=== PATIENT | female | born 1985 | race Caucasian/White ===

== ENCOUNTER 2018-08-24 06:45 | Inpatient (IN) | payer BC ==
[2018-08-24] VITALS (8 sets, daily range): BP systolic 121–137; BP diastolic 95–108; Ht 162.6 cm; Wt 75.3 kg
[~2018-08-24] VITALS: Ht 162.6 cm; Wt 75.3 kg
[~2018-08-24 06:45] MED LIST changes: -ASPI-757 PO; -CEPH500T7 PO; -HYDR-385 PO; -OXCA600T39 PO; -OXYC-373 PO; -PROP20TA56 PO; -QUET25TA PO; -VITA-175 PO; -oxycodone PO
[2018-08-24] MEDS ORDERED: ceFAZolin 1 GM VIAL IVP ONE ×3 (06:50→15:50)
[2018-08-24] MEDS ORDERED: DIPHTH/TETANUS/ACEL. PERTUSSIS IM ONLY ONE (06:50)
[2018-08-24] MEDS ORDERED: NS(*) 0.9% 100 ML ADDVANT BAG 100 ML ONE (07:05)
--- NOTE | 2018-08-24 07:10 | ER Report ---
History and Physical Time Seen By MD: 07:09 Hx. of Stated Complaint: PATIENT FELL DOWNSTAIRS AT HOME AROUND MIDNIGHT, PATIENT HAS OPEN FRACTURE TO LEFT LOWER LEG. PATIENT TOOK A HYDROCODONE. HPI/ROS CHIEF COMPLAINT: Fall, left lower extremity open tib-fib fracture HISTORY OF PRESENT ILLNESS: Patient is a 32-year-old female here with complaints of a fall with obvious bone deformity to the left lower extremity tib-fib. Patient reports that she was walking and fell at approximately midnight. Patient admits to drinking alcohol. She denies other pain at this time, EFAST was negative. Patient reports that she laid on the floor from midnight until approximately 6:00 in the morning. Denies headache, blurred vision. Sensation and neurovascular exam is intact distal to the injury site. Capillary refills less than 2 seconds. Patient denies anticoagulation therapy. REVIEW OF SYSTEMS: Constitutional: No fever, no chills. Eyes: No discharge. ENT: No sore throat. Cardiovascular: No chest pain, no palpitations. Respiratory: No cough, no shortness of breath. Gastrointestinal: No abdominal pain, no vomiting. Genitourinary: No hematuria. Musculoskeletal: No back pain, + LLE deformity mid shaft tib/fib, open fx Skin: No rashes. Neurological: No headache, NV exam intact distal to injury site Allergies: Coded Allergies: valacyclovir (Verified Allergy, Unknown, HIVES, 07/31/15) Home Meds Reported Medications Hydrocodone Bit/Acetaminophen (HYDROCODON-ACETAMINOPHEN 5-325) 1 Each Tablet, 1 EACH PO Q6H PRN for PAIN, TAB 08/24/18 Quetiapine Fumarate (QUETIAPINE FUMARATE) 25 Mg Tablet, 1 TAB PO BID 08/24/18 Propranolol Hcl (PROPRANOLOL HCL) 20 Mg Tablet, 1 TAB PO DAILY 08/24/18 Oxcarbazepine (OXCARBAZEPINE) 600 Mg Tablet, 1 TAB PO BID 08/24/18 Clonazepam (CLONAZEPAM) 0.5 Mg Tablet, 0.5 MG PO, #6 TAB as needed for panic attacks. use sparingly 10/26/14 Discontinued Reported Medications Fluoxetine Hcl (PROZAC) 10 Mg Capsule, 80 MG PO QDAY, CAPSULE 10/26/14 Hx Smoking: No Smoking Status: Former Smoker Exposure to Second Hand Smoke?: No Hx Alcohol Use: Yes (1-2 PINTS/DAY) Constitutional Vital Sign - Last 24 Hours 08/24/18 08/24/18 08/24/18 08/24/18 06:47 06:55 07:00 07:05 Pulse 94 95 99 97 Resp 16 22 19 B/P (MAP) 153/110 145/105 (118) 154/112 (126) Pulse Ox 88 95 94 94 O2 Delivery Room Air 08/24/18 08/24/18 08/24/18 08/24/18 07:10 07:15 07:20 07:25 Pulse 90 92 94 91 Resp 15 15 26 38 Pulse Ox 94 93 94 96 08/24/18 08/24/18 08/24/18 08/24/18 07:30 07:35 07:40 07:45 Pulse 89 99 84 90 Resp 14 15 13 11 B/P (MAP) 135/102 (113) Pulse Ox 96 96 92 91 08/24/18 08/24/18 08/24/18 08/24/18 07:55 08:00 08:05 08:10 Pulse 87 92 81 Resp 10 20 12 16 Pulse Ox 95 94 08/24/18 08/24/18 08/24/18 08/24/18 08:15 08:45 08:55 09:00 Pulse 106 86 88 Resp 18 B/P (MAP) 135/95 (108) 139/110 (120) Pulse Ox 94 94 08/24/18 08/24/18 08/24/18 08/24/18 09:05 09:10 09:15 09:20 Pulse 85 84 82 120 Pulse Ox 93 93 95 96 08/24/18 08/24/18 08/24/18 08/24/18 09:25 09:30 09:35 09:40 Pulse 90 93 93 101 B/P (MAP) 148/108 (121) Pulse Ox 94 95 95 94 08/24/18 08/24/18 08/24/18 08/24/18 09:45 09:50 10:00 10:20 Pulse 94 94 84 B/P (MAP) 129/109 (116) Pulse Ox 94 94 95 08/24/18 08/24/18 08/24/18 10:25 10:30 10:35 Pulse 89 83 91 B/P (MAP) 123/89 (100) Pulse Ox 91 93 91 Intake and Output 08/24/18 08/24/18 08/25/18 15:00 23:00 07:00 Intake Total 2100 ml Output Total 1250 ml Balance 850 ml Physical Exam General Appearance: The patient is alert, has no immediate need for airway protection and no signs of toxicity. No acute distress Eyes: Pupils equal and round no pallor or injection. ENT, Mouth: Mucous membranes are moist. Respiratory: There are no retractions, lungs are clear to auscultation. Cardiovascular: Regular rate and rhythm. Gastrointestinal: Abdomen is soft and non tender, no masses, bowel sounds normal. Neurological: Neurovascular exam intact distal to the injury site Skin: Warm and dry, no rashes. Musculoskeletal: Neck is supple non tender. + mid shaft tib/fib deformity of LLE, open fx DIFFERENTIAL DIAGNOSIS: After history and physical exam differential diagnosis was considered for open fracture, closed fracture, fracture with angulation, neurovascular compromise Medical Decision Making Data Points Result Diagram: 08/25/18 0530 08/25/18 0530 Laboratory Hematology Test 08/24/18 06:19 08/24/18 07:41 Prothrombin Time 12.6 seconds (12.0-14.4) Prothromb Time International Ratio 0.94 Activated Partial Thromboplast Time 28 seconds (23-35) Total Creatine Kinase 473 U/L (30-135) Human Chorionic Gonadotropin, Qual Negative (NEGATIVE) Urine Color Yellow Urine Clarity Clear Urine pH 6.0 pH (4.8-9.5) Urine Specific [place] 1.006 Urine Protein Negative mg/dL (NEGATIVE) Urine Glucose (UA) Negative mg/dL (NEGATIVE) Urine Ketones 20 mg/dL (NEGATIVE) Urine Blood Negative (NEGATIVE) Urine Nitrite Negative (NEGATIVE) Urine Bilirubin Negative (NEGATIVE) Urine Urobilinogen Negative mg/dL (0.2-1.9) Urine Leukocyte Esterase Negative (NEGATIVE) Urine RBC <1 /HPF (0-2/HPF) Urine WBC <1 /HPF (0-5/HPF) Urine Squamous Epithelial Cells None /LPF (NONE-FEW) Urine Transitional Epithelial Cells Few /LPF (NONE-FEW) Urine Bacteria Negative /HPF (NONE-FEW) Urine Mucus Few /HPF (NONE-FEW) Urine Opiates Screen Positive Urine Barbiturates Screen Negative Ur Tricyclic Antidepressants Screen Negative Urine Phencyclidine Screen Negative Urine Amphetamines Screen Negative Urine Benzodiazepines Screen Negative Urine Cocaine Screen Negative Urine Cannabinoids Screen Positive Chemistry Test 08/24/18 06:19 11/9/18 07:41 Prothrombin Time 12.6 seconds (12.0-14.4) Prothromb Time International Ratio 0.94 Activated Partial Thromboplast Time 28 seconds (23-35) Total Creatine Kinase 473 U/L (30-135) Human Chorionic Gonadotropin, Qual Negative (NEGATIVE) Urine Color Yellow Urine Clarity Clear Urine pH 6.0 pH (4.8-9.5) Urine Specific [place] 1.006 Urine Protein Negative mg/dL (NEGATIVE) Urine Glucose (UA) Negative mg/dL (NEGATIVE) Urine Ketones 20 mg/dL (NEGATIVE) Urine Blood Negative (NEGATIVE) Urine Nitrite Negative (NEGATIVE) Urine Bilirubin Negative (NEGATIVE) Urine Urobilinogen Negative mg/dL (0.2-1.9) Urine Leukocyte Esterase Negative (NEGATIVE) Urine RBC <1 /HPF (0-2/HPF) Urine WBC <1 /HPF (0-5/HPF) Urine Squamous Epithelial Cells None /LPF (NONE-FEW) Urine Transitional Epithelial Cells Few /LPF (NONE-FEW) Urine Bacteria Negative /HPF (NONE-FEW) Urine Mucus Few /HPF (NONE-FEW) Urine Opiates Screen Positive Urine Barbiturates Screen Negative Ur Tricyclic Antidepressants Screen Negative Urine Phencyclidine Screen Negative Urine Amphetamines Screen Negative Urine Benzodiazepines Screen Negative Urine Cocaine Screen Negative Urine Cannabinoids Screen Positive Coagulation Test 08/24/18 06:19 Prothrombin Time 12.6 seconds Prothromb Time International Ratio 0.94 Activated Partial Thromboplast Time 28 seconds Toxicology Test 08/24/18 07:41 Urine Opiates Screen Positive Urine Barbiturates Screen Negative Ur Tricyclic Antidepressants Screen Negative Urine Phencyclidine Screen Negative Urine Amphetamines Screen Negative Urine Benzodiazepines Screen Negative Urine Cocaine Screen Negative Urine Cannabinoids Screen Positive Urinalysis Test 08/24/18 07:41 Urine Color Yellow Urine Clarity Clear Urine pH 6.0 pH (4.8-9.5) Urine Specific [place] 1.006 Urine Protein Negative mg/dL (NEGATIVE) Urine Glucose (UA) Negative mg/dL (NEGATIVE) Urine Ketones 20 mg/dL (NEGATIVE) Urine Blood Negative (NEGATIVE) Urine Nitrite Negative (NEGATIVE) Urine Bilirubin Negative (NEGATIVE) Urine Urobilinogen Negative mg/dL (0.2-1.9) Urine Leukocyte Esterase Negative (NEGATIVE) Urine RBC <1 /HPF (0-2/HPF) Urine WBC <1 /HPF (0-5/HPF) Urine Squamous Epithelial Cells None /LPF (NONE-FEW) Urine Transitional Epithelial Cells Few /LPF (NONE-FEW) Urine Bacteria Negative /HPF (NONE-FEW) Urine Mucus Few /HPF (NONE-FEW) EKG/Imaging EKG Interpretation Test Reason : Pre-op Blood Pressure : / mmHG Vent. Rate : 082 BPM Atrial Rate : 082 BPM P-R Int : 124 ms QRS Dur : 076 ms QT Int : 424 ms P-R-T Axes : 025 064 051 degrees QTc Int : 495 ms Sinus rhythm Slightly prolonged QT interval Abnormal ECG When compared with ECG of 31-JUL-2015 02:39, No significant change was found Confirmed by ROZINA LOPEZ ([id number]) on 08/24/2018 1:27:16 PM Monitor Interpretation: Normal Sinus Rhythm Imaging Location: [facility] [place] Patient: Sybil Dewitt : 1985 Visit/Account:[id number] Date of Sev: 08/24/2018 TIBIA FIBULA LEFT Indication: Fall. Open fracture deformity. Comparison: None available Findings: Frontal and lateral views of the left tibia-fibula are obtained. Beginning with the tibia, there is an oblique fracture through the shaft of the tibia at the j unction of the middle and distal thirds. There is medial and posterior angulation of the distal fracture fragment as well as posterior displacement. There is overriding of the fracture fragments as well. Multiple flecks of gas are seen in the soft tissues in keeping with an open fracture. There is a segmental fracture of the fibula. Fractures are seen involving the proximal shaft as well as the mid to distal shaft. The most distal fragment is angulated medially and posteriorly with medial displacement. IMPRESSION: 1. Open left tibia-fibula fracture as detailed above. Multiple flecks of gas seen within the soft tissues about the tibia fracture line. Location: [facility] [place] Patient: Sybil Dewitt : 1985 Visit/Account:[id number] Date of Sevice: 08/24/[address] scan without contrast COMPARISONS: None ADDITIONAL PERTINENT HISTORY: Fall TECHNIQUE: Multiple axial images were obtained from the skull base to the vertex without IV contrast. One of the following dose optimization techniques was utilized in the performance of this exam: Automated exposure control; adjustment of the mA and/or kV according to the patient's size; or use of an iterative reconstruction technique. Specific details can be referenced in the facility's radiology CT exam operational policy. FINDINGS: Midline shift: Negative Ventricles: Negative Brain parenchyma: Negative Extra-axial spaces: Negative Intracranial vasculature: Negative Osseous structures: Negative Paranasal sinuses and mastoid air cells: Small mucous retention cyst involving the right sphenoid sinus. Surrounding soft tissues and orbits: Negative IMPRESSION: 1. No evidence of acute intracranial pathology. 2. Small mucous retention cyst involving the right maxillary sinus. C-SPINE W/O CONTRAST COMPARISONS: None. ADDITIONAL PERTINENT HISTORY: Fall TECHNIQUE: Multiple axial images were obtained from the skull base through the upper thoracic spine with coronal and sagittal reformatted images obtained without IV contrast. One of the following dose optimization techniques was utilized in the performance of this exam: Automated exposure control; adjustment of the mA and/or kV according to the patient's size; or use of an iterative reconstruction technique. Specific details can be referenced in the facility's radiology CT exam operational policy. FINDINGS. Vertebral body heights and alignment: Mild reversal of normal cervical lordosis centered at C6-C7. Vertebral bodies: Negative. Disc spaces: None. Cranial cervical junction: Negative. Cervical thoracic junction: Negative. Surrounding soft tissues: Negative. Lung apices: Negative. IMPRESSION: 1. Mild reversal of normal cervical lordosis. 2. No acute appearing bony abnormalities. Location: [facility] [place] Patient: Sybil Dewitt : 1985 Visit/Account:[id number] Date of : 08/24/2018 PELVIS INDICATION: Fall downstairs. COMPARISON: None available FINDINGS: Single frontal view of the pelvis is submitted. No acute fracture is identified. Hip joints appear appropriately aligned on this single projection. Pubic symphysis and sacroiliac joints are appropriately aligned. IMPRESSION: 1. No acute osseous abnormality of the pelvis Location: [facility] [place] Patient: Sybil Dewitt : 1985 Visit/Account:[id number] Date of : 08/24/2018 Left femur Indication: Pain. Fall downstairs. Comparison: None available Findings: Frontal and lateral views of the left femur are submitted on a total of 4 images. No acute fracture deformity is identified. The alignment at the hip and the knee appears intact. No osseous or joint centered abnormality.. IMPRESSION: 1. No acute osseous abnormality left femur CTA LOWER EXTREMITY HISTORY: fracture, r/o vascular injury One of the following dose optimization techniques was utilized in the performance of this exam: Automated exposure control; adjustment of the mA and/or kV according to the patient's size; or use of an iterative reconstruction technique. Specific details can be referenced in the facility's radiology CT exam operational policy. CTA of the left lower extremity. TECHNIQUE: CTA of the left lower extremity with 125 mL of Isovue-370 administered. Axial imaging from the pelvis through foot. Reconstructed sagittal and coronal scans were obtained as well. FINDINGS: The study demonstrates a widely patent common iliac, external iliac, common femoral, SFA, popliteal anterior tibial, tibioperoneal trunk and posterior tibial and peroneal arteries throughout the left lower leg with no evidence of vascular injury. There are overlapping fractures of the fibula in its proximal metadiaphysis as well as a distal third aspect. There is offset and overlapping of the distal third tibial fracture. There is a distal third tibial fracture with offset posterior offset of the dis more component with a 12 degree lateral angulation. There is a continuation of a fracture line in the distal tibia along its medial aspect both anteriorly and posteriorly initially (images 147 through 159) and then continuing as a posterior cortical fracture line down to the tibial plafond. At this point there is a displaced fracture of the distal medial tibia as a 1.8 cm chip avulsion (image 187 series 9.) On the axial image the fracture extends across the tibial plafond medially well visualized on axial image 186 series 9. The adjacent talus calcaneus and mid foot structures are unremarkable. There is soft tissue air seen adjacent to the tibial fracture anteriorly with an additional small amount of air interposed between the fracture fragments. No foreign material is seen. IMPRESSION: 1. Multiple fractures involving the fibula in its proximal and distal third aspects, distal third tibia fracture with an additional fracture line extending down the length of the tibia terminating as a Y-shaped fracture extending across the tibial plafond and into the joint space with a chip avulsion of the distal lateral tibia. 2. Soft tissue air within the soft tissues consistent with an open fracture. 3. No evidence of acute arterial injury. ED Course/Re-evaluation ED Course Patient is a 32-year-old female here status post fall down a flight of steps approximately midnight. Patient reportedly was unable to get up and walk due to open deformity of the left tib-fib. Patient reportedly was on the floor for quite some time and was found to have an alcohol level of 269 at time of arrival. Tox screen was positive for cannabis and opiates. Patient was given IV fluids, thiamine, folic acid, Ativan. Due to the severity of the injury, Dr. Bacon with orthopedics was contacted and agreed to take the patient to his service and for surgical intervention. CT head and C-spine showed no acute findings, physical exam was otherwise unremarkable. Patient was neurovascularly intact distal to the injury site. Patient was stable at time of admission Decision to Disposition Date: Aug 24, 2018 Decision to Disposition Time: 10:30 Depart Departure Latest Vital Signs Vital Signs Date Time Temp Pulse Resp B/P (MAP) Pulse Ox O2 Delivery O2 Flow Rate FiO2 08/24/18 10:35 91 91 08/24/18 10:30 123/89 (100) 08/24/18 08:15 18 08/24/18 06:47 Room Air Impression: Primary Impression: Tibia/fibula fracture Additional Impression: Alcohol abuse Condition: Condition Unchanged Disposition: Admitted from ER Problem Qualifiers LAZARO PEREZ DO Aug 24, 2018 07:10
[2018-08-24] MEDS ORDERED: fentaNYL CITR 100 MCG/2 ML AMP IVP ONE (07:30)
[2018-08-24] MEDS ORDERED: NS(*) 0.9% 1000 ML BAG 1,000 ML IV ONE ×3 (07:35→07:55)
[2018-08-24 07:36] LABS: PLATELET COUNT, AUTOMATED 183 K/uL (150-450)
--- NOTE | 2018-08-24 07:36 | RADIOLOGY IMAGING REPORT ---
FACILITY: [facility] [place] PATIENT NAME: Sybil Dewitt : 1985 MR: [id number] V: [id number] EXAM DATE: ORDERING PHYSICIAN: BELLA DUBON TECHNOLOGIST: Location: [facility] [place] Patient: Sybil Dewitt : 1985 Visit/Account:[id number] Date of Sevice: 08/24/2018 PELVIS INDICATION: Fall downstairs. COMPARISON: None available FINDINGS: Single frontal view of the pelvis is submitted. No acute fracture is identified. Hip joints appear ap propriately aligned on this single projection. Pubic symphysis and sacroiliac joints are appropriatel y aligned. IMPRESSION: 1. No acute osseous abnormality of the pelvis Report Dictated By: Samy Cheek at 08/24/2018 7:31 AM Report E-Signed By: Samy Cheek at 08/24/2018 7:32 AM WSN:[id number]
--- NOTE | 2018-08-24 07:37 | RADIOLOGY IMAGING REPORT ---
FACILITY: [facility] - [place] PATIENT NAME: Sybil Dewitt : 1985 MR: [id number] V: [id number] EXAM DATE: ORDERING PHYSICIAN: BELLA DUBON TECHNOLOGIST: Location: [facility] [place] Patient: Sybil Dewitt : 1985 Visit/Account:[id number] Date of Sevice: 08/24/2018 Left femur Indication: Pain. Fall downstairs. Comparison: None available Findings: Frontal and lateral views of the left femur are submitted on a total of 4 images. No acute fracture d eformity is identified. The alignment at the hip and the knee appears intact. No osseous or joint nathan tered abnormality.. IMPRESSION: 1. No acute osseous abnormality left femur Report Dictated By: Samy Cheek at 08/24/2018 7:32 AM Report E-Signed By: Samy Cheek at 08/24/2018 7:34 AM WSN:[id number]
--- NOTE | 2018-08-24 07:44 | RADIOLOGY IMAGING REPORT ---
FACILITY: [facility] PATIENT NAME: Sybil Dewitt : 1985 MR: [id number] V: [id number] EXAM DATE: ORDERING PHYSICIAN: RIVAS MIR TECHNOLOGIST: Location: [facility] Patient: Sybil Dweitt : 1985 Visit/Account:[id number] Date of Sevice: 08/24/2018 TIBIA FIBULA LEFT Indication: Fall. Open fracture deformity. Comparison: None available Findings: Frontal and lateral views of the left tibia-fibula are obtained. Beginning with the tibia, there is a n oblique fracture through the shaft of the tibia at the junction of the middle and distal thirds. Th ere is medial and posterior angulation of the distal fracture fragment as well as posterior displacem ent. There is overriding of the fracture fragments as well. Multiple flecks of gas are seen in the so ft tissues in keeping with an open fracture. There is a segmental fracture of the fibula. Fractures a re seen involving the proximal shaft as well as the mid to distal shaft. The most distal fragment is angulated medially and posteriorly with medial displacement. IMPRESSION: 1. Open left tibia-fibula fracture as detailed above. Multiple flecks of gas seen within the soft tis sues about the tibia fracture line. Report Dictated By: Samy Cheek at 08/24/2018 7:34 AM Report E-Signed By: Samy Cheek at 08/24/2018 7:41 AM WSN:[id number]
[2018-08-24] MEDS ORDERED: THIAMINE HCL 100 MG TAB PO ONE (07:55)
[2018-08-24] MEDS ORDERED: FOLIC ACID 1 MG TAB PO ONE (07:55)
[2018-08-24] MEDS ORDERED: IOPAMIDOL 76% 75 ML INFUS BTL 75 ML ONE (08:07)
[2018-08-24] MEDS ORDERED: IOPAMIDOL 76% 50 ML INFUS BTL 50 ML ONE (08:07)
[2018-08-24] MEDS ORDERED: NS(*) 0.9% 50 ML BAG 50 ML ONE (08:07)
[2018-08-24 08:09] LABS: INR 0.94
[2018-08-24] MEDS ORDERED: EMS NS 0.9%(*) 1000 ML BAG 1,000 ML IV ONE (08:20)
--- NOTE | 2018-08-24 09:15 | RADIOLOGY IMAGING REPORT ---
FACILITY: [facility] PATIENT NAME: Sybil Dewitt : 1985 MR: [id number] V: [id number] EXAM DATE: ORDERING PHYSICIAN: RIVAS MIR TECHNOLOGIST: Location: [facility] Patient: Sybil Dewitt : 1985 Visit/Account:[id number] Date of Sevice: 08/24/[address] scan without contrast COMPARISONS: None ADDITIONAL PERTINENT HISTORY: Fall TECHNIQUE: Multiple axial images were obtained from the skull base to the vertex without IV contrast . One of the following dose optimization techniques was utilized in the performance of this exam: Aut omated exposure control; adjustment of the mA and/or kV according to the patient's size; or use of an iterative reconstruction technique. Specific details can be referenced in the facility's radiology CT exam operational policy. FINDINGS: Midline shift: Negative Ventricles: Negative Brain parenchyma: Negative Extra-axial spaces: Negative Intracranial vasculature: Negative Osseous structures: Negative Paranasal sinuses and mastoid air cells: Small mucous retention cyst involving the right sphenoid si nus. Surrounding soft tissues and orbits: Negative IMPRESSION: 1. No evidence of acute intracranial pathology. 2. Small mucous retention cyst involving the right maxillary sinus. Report Dictated By: Brendon Amaya MD at 08/24/2018 9:03 AM Report E-Signed By: Brendon Amaya MD at 08/24/2018 9:11 AM WSN:[id number]
--- NOTE | 2018-08-24 09:51 | RADIOLOGY IMAGING REPORT ---
FACILITY: [facility] - [place] PATIENT NAME: Sybil Dewitt : 1985 MR: [id number] V: [id number] EXAM DATE: ORDERING PHYSICIAN: RIVAS MIR TECHNOLOGIST: Location: [facility] - [place] Patient: Sybil Dewitt : 1985 Visit/Account:[id number] Date of Sevice: 08/24/2018 C-SPINE W/O CONTRAST COMPARISONS: None. ADDITIONAL PERTINENT HISTORY: Fall TECHNIQUE: Multiple axial images were obtained from the skull base through the upper thoracic spine with coronal and sagittal reformatted images obtained without IV contrast. One of the following dose optimization techniques was utilized in the performance of this exam: Automated exposure control; adj ustment of the mA and/or kV according to the patient's size; or use of an iterative reconstruction t echnique. Specific details can be referenced in the facility's radiology CT exam operational policy. FINDINGS. Vertebral body heights and alignment: Mild reversal of normal cervical lordosis centered at C6-C7. Vertebral bodies: Negative. Disc spaces: None. Cranial cervical junction: Negative. Cervical thoracic junction: Negative. Surrounding soft tissues: Negative. Lung apices: Negative. IMPRESSION: 1. Mild reversal of normal cervical lordosis. 2. No acute appearing bony abnormalities. Report Dictated By: Brendon Amaya MD at 08/24/2018 9:15 AM Report E-Signed By: Brendon Amaya MD at 08/24/2018 9:47 AM WSN:[id number]
[2018-08-24] MEDS ORDERED: ONDANSETRON 4 MG/2 ML VIAL IVP ONE (10:10)
[2018-08-24] MEDS ORDERED: NORMOSOL R SOLN(*) 1000 ML BAG 1,000 ML IV ONE (10:15)
[2018-08-24] MEDS ORDERED: FAMOTIDINE(*) 20MG/50ML PREMIX 50 ML IVPB ONE (10:15)
[2018-08-24] MEDS ORDERED: LORazepam 2 MG/ML VIAL IVP ONE (10:25)
--- NOTE | 2018-08-24 10:26 | RADIOLOGY IMAGING REPORT ---
FACILITY: [facility] PATIENT NAME: Sybil Dewitt : 1985 MR: [id number] V: [id number] EXAM DATE: ORDERING PHYSICIAN: LAZARO PEREZ TECHNOLOGIST: [place] [facility] [place] Sybil Dewitt : 1985 Visit/Account:[id number] Date of Sevice: 08/24/2018 CTA LOWER EXTREMITY HISTORY: fracture, r/o vascular injury One of the following dose optimization techniques was utilized in the performance of this exam: Autom ated exposure control; adjustment of the mA and/or kV according to the patient's size; or use of an i terative reconstruction technique. Specific details can be referenced in the facility's radiology C T exam operational policy. CTA of the left lower extremity. TECHNIQUE: CTA of the left lower extremity with 125 mL of Isovue-370 administered. Axial imaging from the pelvi s through foot. Reconstructed sagittal and coronal scans were obtained as well. FINDINGS: The study demonstrates a widely patent common iliac, external iliac, common femoral, SFA, popliteal a nterior tibial, tibioperoneal trunk and posterior tibial and peroneal arteries throughout the left lo wer leg with no evidence of vascular injury. There are overlapping fractures of the fibula in its proximal metadiaphysis as well as a distal third aspect. There is offset and overlapping of the distal third tibial fracture. There is a distal third tibial fracture with offset posterior offset of the distal component with a 1 2 degree lateral angulation. There is a continuation of a fracture line in the distal tibia along it s medial aspect both anteriorly and posteriorly initially (images 147 through 159) and then continuin g as a posterior cortical fracture line down to the tibial plafond. At this point there is a displa trace fracture of the distal medial tibia as a 1.8 cm chip avulsion (image 187 series 9.) On the axial image the fracture extends across the tibial plafond medially well visualized on axial image 186 ser ies 9. The adjacent talus calcaneus and mid foot structures are unremarkable. There is soft tissue air seen adjacent to the tibial fracture anteriorly with an additional small bebe unt of air interposed between the fracture fragments. No foreign material is seen. IMPRESSION: 1. Multiple fractures involving the fibula in its proximal and distal third aspects, distal third ti ayo fracture with an additional fracture line extending down the length of the tibia terminating as a Y-shaped fracture extending across the tibial plafond and into the joint space with a chip avulsion of the distal lateral tibia. 2. Soft tissue air within the soft tissues consistent with an open fracture. 3. No evidence of acute arterial injury. Report Dictated By: Jett Llamas MD at 08/24/2018 9:33 AM Report E-Signed By: Jett Llamas MD at 08/24/2018 10:21 AM WSN:[email or web address]
--- NOTE | 2018-08-24 10:52 | EKG ---
FACILITY: [facility] - [place] PATIENT NAME: ELI CH : [id number] MR: [id number] V: [id number] EXAM DATE: ORDERING PHYSICIAN: LAZARO PEREZ TECHNOLOGIST: Test Reason : Pre-op Blood Pressure : / mmHG Vent. Rate : 082 BPM Atrial Rate : 082 BPM P-R Int : 124 ms QRS Dur : 076 ms QT Int : 424 ms P-R-T Axes : 025 064 051 degrees QTc Int : 495 ms Sinus rhythm Slightly prolonged QT interval Abnormal ECG When compared with ECG of 31-JUL-2015 02:39, No significant change was found Confirmed by ROZINA LOPEZ ([id number]) on 08/24/2018 1:27:16 PM Referred By: Confirmed By:ROZINA LOPEZ
--- NOTE | 2018-08-24 11:14 | RADIOLOGY IMAGING REPORT ---
FACILITY: [facility] PATIENT NAME: Sybil Dewitt : 1985 MR: [id number] V: [id number] EXAM DATE: ORDERING PHYSICIAN: LAZARO PEREZ TECHNOLOGIST: Location: [facility] [place] Patient: Sybil Dewitt : 1985 Visit/Account:[id number] Date of Sevice: 08/24/2018 CHEST PA AND LAT Additional pertinent History: Coughing up blood COMPARISON STUDIES: None 07/31/2015 FINDINGS: Support lines and catheters: None Lungs and Pleura: Lung jo well expanded with no infiltrates or consolidations. No parenchymal ma ss lesions are seen. There are no effusions Heart and vasculature: Negative. Khadra and Mediastinum: Negative. Bones and Chest wall: Negative. Upper Abdomen: Negative. IMPRESSION: 1. Negative chest for acute cardiopulmonary disease no interval change when compared to the previous study. Report Dictated By: Jett Llamas MD at 08/24/2018 11:10 AM Report E-Signed By: Jett Llamas MD at 08/24/2018 11:11 AM WSN:CODY
[2018-08-24] MEDS ORDERED: OXCA600T39 PO (12:29)
[2018-08-24] MEDS ORDERED: PROP20TA56 PO (12:29)
[2018-08-24] MEDS ORDERED: QUET25TA PO (12:29)
[2018-08-24] MEDS ORDERED: HYDR-385 PO (12:30)
--- NOTE | 2018-08-24 13:02 | HISTORY AND PHYSICAL ---
DATE OF ADMISSION: August 2412-03 EMERGENCY ROOM EVALUATION AND HISTORY AND PHYSICAL PRIOR TO SURGERY CHIEF COMPLAINT Ms. Dewitt is a 32-year-old woman who has difficulty with anxiety and drug dependence. She has been in the emergency room a few times. The ER staff knows her well. Most of the previous admissions had been regarding alcohol use. She has had a previous right lower extremity fracture but I do not know details of that. She did not require surgery. The reason she is here today is because she has an open tib/fib fracture on the left lower extremity. HISTORY OF PRESENT ILLNESS Last night, even though she said she had not been drinking, she was in fact drinking as well as using opiates and marijuana. She fell down the last three steps of her stairs and thought she sprained her left ankle. She was not able to bear weight easily. Her , who was with her at the time, examined her ankle and felt that she probably sprained it so they just had her rest on the floor and he laid down next to her to go to sleep. He woke up when he heard her complaining of discomfort in the bathroom. She had gotten up in the night at about 1 o'clock in the morning and tried to walk to the bathroom. He noticed a trail of blood running from where she had been lying down to the bathroom and then they examined her leg and noticed the bleeding. Surprisingly, they still did not elect to go to the emergency room at that time. He figured that it was probably just a cut that he had missed at the time of the initial fall. She went back to sleep but this morning when she woke up it was clearly a problem. She was less inebriated and, therefore, had more pain. She took more hydrocodone and then called 911. She was transported to the emergency room by ambulance and, unfortunately, x-rays show that she has a Gustillo Grade 1 open tib/fib fracture of the left lower extremity with the fibula being broken in segmental fashion. CLINICAL EXAM She is neurovascularly intact to exam with a capacity to dorsiflex and plantarflex her toes. She has a palpable dorsalis pedis pulse. The wound is very small, measuring approximately 7 mm, slightly oblique and it probably occurred when she walked on it. Her leg is angulated apex latera. She does not have additional pain at the knee or hip and there is no pain elsewhere in her body. X-rays show the obliquity of the tibial fracture at approximately the junction of the middle and distal 1/3. PLAN She last drank water at 1 o'clock in the morning. She last ate yesterday at an indeterminate time. Her alcohol level on admission is 252. She has positive cannabis and positive opiates. I asked her about the opiates because she told me she does not use drugs and it turns out that she is on hydrocodone on a chronic basis and she then admitted to using marijuana. She also said she had not been drinking but clearly she has been drinking. The plan at this point is to do a washout of the open tib/fib fracture with a rodding. The fibula would be left alone. Unfortunately, she will probably go through alcohol withdrawal so we will have to admit her and go through the medical care on that. She takes numerous different medications and I did not have a full list of it. It sounds like most of them are anxiolytics as well as hydrocodone. Her head CT was normal. She was given antibiotics and a tetanus booster, but we estimate that her open tibial fracture is already about 9 hours old or more. DAQUAN
--- NOTE | 2018-08-24 13:25 | Hospitalist Consultation ---
History of Present Illness Requesting Physician Dr. Bacon Reason for Consult Medical evaluation/co-management Chief Complaint Left leg pain History of Present Illness 32yo female with PMHx significant for chronic anxiety, HTN, alcohol use/intermittent binging, and chronic pain. She reportedly fell down flight of stairs late last night sustaining open left tibia/fibula fracture. She was evaluated in the ER and no other significant areas of trauma were found. She did have an elevated blood alcohol level as well as elevated LFTs. Her coagulation studies are in normal range. She is currently alert and oriented. She is able to answer all questions. She has not had surgery requiring general anesthesia, but has had conscious sedation for endoscopy. She denies any history of bleeding or clotting problems. She denies chest pain. She does report occasional dyspnea. She does smoke, but not every day "only when I drink". She denies ever having alcohol withdrawal, but is not sure she has stopped long enough. She reports she does binge drink frequently, but does not necessarily drink every day. Her BAL in the ER was 269. She was also positive for opiates and cannabinoids. History Problems: (1) ANXIETY DISORDER, UNSPECIFIED Status: Chronic (2) Ankle fracture, right Status: Resolved Comment: chronic pain (3) GERD (gastroesophageal reflux disease) Status: Chronic (4) Celiac disease Status: Chronic (5) HTN (hypertension) Status: Chronic Home Meds Reported Medications Hydrocodone Bit/Acetaminophen (HYDROCODON-ACETAMINOPHEN 5-325) 1 Each Tablet, 1 EACH PO Q6H PRN for PAIN, TAB 08/24/18 Quetiapine Fumarate (QUETIAPINE FUMARATE) 25 Mg Tablet, 1 TAB PO BID 08/24/18 Propranolol Hcl (PROPRANOLOL HCL) 20 Mg Tablet, 1 TAB PO DAILY 08/24/18 Oxcarbazepine (OXCARBAZEPINE) 600 Mg Tablet, 1 TAB PO BID 08/24/18 Clonazepam (CLONAZEPAM) 0.5 Mg Tablet, 0.5 MG PO, #6 TAB as needed for panic attacks. use sparingly 10/26/14 Discontinued Reported Medications Fluoxetine Hcl (PROZAC) 10 Mg Capsule, 80 MG PO QDAY, CAPSULE 10/26/14 Allergies: Coded Allergies: valacyclovir (Verified Allergy, Unknown, HIVES, 07/31/15) Patient History: FH: heart attack FATHER, FH: rheumatic fever FATHER, Hx Smoking: Yes Smoking Status: Current: Some Days Smoker Exposure to Second Hand Smoke?: No Caffeine/Cups Per Day: NONE-MAKES HER NERVOUS Hx Alcohol Use: Yes (1-2 PINTS/DAY) Alcohol Withdrawl Symptoms: Tremors, Sweating, Nausea/Vomiting Hx Substance Use Disorder: Yes (couple days ago) Social Drugs: Marijuana Review of Systems Constitutional: No Fever Respiratory: Shortness of Breath, Cough Gastrointestinal: Nausea, Vomiting, Diarrhea Musculoskeletal: Pain Psychiatric: Anxiety Exam Vital Signs Vital Signs Date Time Temp Pulse Resp B/P (MAP) Pulse Ox O2 Delivery O2 Flow Rate FiO2 08/24/18 13:04 86 08/24/18 11:49 98.4 98 12 121/95 (104) Nasal Cannula 2.0 General Appearance: Alert, Awake, Other (somewhat tremulous) Neuro: Other (CN intact/motor and sensory exams grossly normal) Eyes: PERRLA ENT: Oropharynx Clear Neck: No Masses Cardiovascular: Other (Regular slightlt tachycardic no murmur) Respiratory: Other (Scattered rhonchi) Chest: No Tenderness GI: Abd Soft and Non-Tender Extremities: Warm, Perfused, Other (Left lower extremity splinted/dressed) Psych: Alert & Oriented X3 Medical Decision Making Data Points Result Diagram: 08/24/18 0608/24/18618 Item Value Date Time Serum Alcohol 269 mg/dl 08/24/18 06 Urine Cannabinoids Screen Positive 08/24/18 07 Urine Cocaine Screen Negative 08/24/18 0741 Urine Benzodiazepines Screen Negative 08/24/18 0741 Urine Amphetamines Screen Negative 08/24/18 0741 Urine Phencyclidine Screen Negative 08/24/18 0741 Ur Tricyclic Antidepressants Screen Negative 08/24/18 0741 Urine Barbiturates Screen Negative 08/24/18 0741 Urine Opiates Screen Positive 08/24/18 0741 Human Chorionic Gonadotropin, Qual Negative 08/24/18618 Albumin 4.5 g/dl 08/24/18 06 Total Protein 8.0 g/dl 08/24/18 0619 Total Creatine Kinase 473 U/L H 08/24/18 06 Alkaline Phosphatase 82 U/L 08/24/18 0619 Alanine Aminotransferase (ALT/SGPT) 299 U/L H 08/24/18 0619 Aspartate Amino Transf (AST/SGOT) 243 U/L H 08/24/18 0619 Total Bilirubin 1.0 mg/dl 08/24/18 0619 Calcium Level 9.0 mg/dl 08/24/18 0619 Random Glucose 97 mg/dl 08/24/18 06 Glomerular Filtration Rate Calc > 60.0 08/24/18 0619 Creatinine 0.50 mg/dl L 08/24/18 0619 Blood Urea Nitrogen 7 mg/dl 08/24/18 0619 Carbon Dioxide Level 22 mmol/L 08/24/18 0619 Chloride Level 99 mmol/L 08/24/18 0619 Potassium Level 4.2 mmol/L 08/24/18 0619 Sodium Level 139 mmol/L 08/24/18 0619 Urine Mucus Few /HPF 08/24/18 0741 Urine Bacteria Negative /HPF 08/24/18 0741 Urine Transitional Epithelial Cells Few /LPF 08/24/18 0741 Urine Squamous Epithelial Cells None /LPF 08/24/18 0741 Urine WBC <1 /HPF 08/24/18 0741 Urine RBC <1 /HPF 08/24/18 0741 Urine Leukocyte Esterase Negative 08/24/18 0741 Urine Urobilinogen Negative mg/dL 08/24/18 0741 Urine Bilirubin Negative 08/24/18 0741 Urine Nitrite Negative 08/24/18 0741 Urine Blood Negative 08/24/18 0741 Urine Ketones 20 mg/dL H 08/24/18 0741 Urine Glucose (UA) Negative mg/dL 08/24/18 0741 Urine Protein Negative mg/dL 08/24/18 0741 Urine Specific [place] 1.006 08/24/18 0741 Urine Clarity Clear 08/24/18 0741 Urine pH 6.0 pH 08/24/18 0741 Urine Color Yellow 08/24/18 0741 Activated Partial Thromboplast Time 28 seconds 08/24/18 0619 Prothromb Time International Ratio 0.94 08/24/18 0619 Prothrombin Time 12.6 seconds 08/24/18 06 EKG / Imaging EKG Interpretation PATIENT NAME: ELI DEWITT : 1985 MR: [id number] V: [id number] EXAM DATE: ORDERING PHYSICIAN: LAZARO PEREZ TECHNOLOGIST: Test Reason : Pre-op Blood Pressure : / mmHG Vent. Rate : 082 BPM Atrial Rate : 082 BPM P-R Int : 124 ms QRS Dur : 076 ms QT Int : 424 ms P-R-T Axes : 025 064 051 degrees QTc Int : 495 ms Sinus rhythm Slightly prolonged QT interval Abnormal ECG When compared with ECG of 31-JUL-2015 02:39, No significant change was found Confirmed by ROZINA LOPEZ ([id number]) on 08/24/2018 1:27:16 PM Referred By: Confirmed By:ROZINA LOPEZ Imaging PATIENT NAME: Eli Dewitt : 1985 MR: [id number] V: [id number] EXAM DATE: ORDERING PHYSICIAN: LAZARO PEREZ TECHNOLOGIST: Location: [facility] - [place], [place] Patient: Eli Dewitt : 1985 Visit/Account:[id number] Date of Sevice: 08/24/2018 CHEST PA AND LAT Additional pertinent History: Coughing up blood COMPARISON STUDIES: None 07/31/2015 FINDINGS: Support lines and catheters: None Lungs and Pleura: Lung jo well expanded with no infiltrates or consolidations. No parenchymal mass lesions are seen. There are no effusions Heart and vasculature: Negative. Khadra and Mediastinum: Negative. Bones and Chest wall: Negative. Upper Abdomen: Negative. IMPRESSION: 1. Negative chest for acute cardiopulmonary disease no interval change when compared to the previous study. Report Dictated By: Jett Llamas MD at 08/24/2018 11:10 AM Report E-Signed By: Jett Llamas MD at 08/24/2018 11:11 AM WSN:[email or web address] PATIENT NAME: Eli Dewitt : 1985 MR: [id number] V: [id number] EXAM DATE: [id number] ORDERING PHYSICIAN: RIVAS MIR TECHNOLOGIST: Location: [facility] - [place], [place] Patient: Eli Dewitt : 1985 Visit/Account:[id number] Date of Sevice: 08/24/[address] scan without contrast COMPARISONS: None ADDITIONAL PERTINENT HISTORY: Fall TECHNIQUE: Multiple axial images were obtained from the skull base to the vertex without IV contrast. One of the following dose optimization techniques was utilized in the performance of this exam: Automated exposure control; adjustment of the mA and/or kV according to the patient's size; or use of an iterative reconstruction technique. Specific details can be referenced in the facility's radiology CT exam operational policy. FINDINGS: Midline shift: Negative Ventricles: Negative Brain parenchyma: Negative Extra-axial spaces: Negative Intracranial vasculature: Negative Osseous structures: Negative Paranasal sinuses and mastoid air cells: Small mucous retention cyst involving the right sphenoid sinus. Surrounding soft tissues and orbits: Negative IMPRESSION: 1. No evidence of acute intracranial pathology. 2. Small mucous retention cyst involving the right maxillary sinus. Report Dictated By: Brendon Amaya MD at 08/24/2018 9:03 AM Report E-Signed By: Brendon Amaya MD at 08/24/2018 9:11 AM WSN:[id number] Assessment and Plan Problems: (1) Alcohol abuse Status: Acute Assessment & Plan: It does appear she has alcohol use/abuse and may already have some mild withdrawal symptoms. Will place on CIWA protocol/use benzodiazepines as needed, supplement with B vitamins, watch closely. This c ertainly may complicate her maya-operative course. It will increase her risk related to the anesthesia/surgery, but unfortunately due to the open fracture there really aren't other options. On the positive side, the anesthesia should actually provide some initial treatment of her withdrawal. (2) Celiac disease Status: Chronic Assessment & Plan: Will place on gluten free diet post-op. (3) GERD (gastroesophageal reflux disease) Status: Chronic Assessment & Plan: Will cover with PPI therapy. (4) ANXIETY DISORDER, UNSPECIFIED Status: Chronic Assessment & Plan: She has been managed with oxcarbazepine and we will need to resume post-operatively. She has also been on chronic clonazepam and this could contribute to her withdrawal. (5) HTN (hypertension) Status: Chronic Assessment & Plan: She has been managed with propranolol. Will resume and monitor BPs. (6) Tibia/fibula fracture Status: Acute Assessment & Plan: As per Dr. Bacon. Venous Thromboembolism Antithrombotics Is Pt On Any Antithrombotics?: No (due to upcoming surgery) Exam Sepsis Risk: No Definite Risk Problem Qualifiers (1) Tibia/fibula fracture: Laterality: left ROZINA LOPEZ MD Aug 24, 2018 13:25
[2018-08-24] MEDS ORDERED: SUGAMMADEX SOD 500 MG/5 ML SDV ONE (13:45)
[2018-08-24] MEDS ORDERED: KETOROLAC 30 MG/ML VIAL ONE (13:45)
[2018-08-24] MEDS ORDERED: LORazepam 2 MG/ML VIAL IVP PRN (13:45)
[2018-08-24] MEDS ORDERED: ROCURONIUM BROM 10 MG/ML 5 ML ONE (13:45)
[2018-08-24] MEDS ORDERED: SUCCINYLCHOL CHL 200MG/10ML VL ONE (13:45)
[2018-08-24] MEDS ORDERED: ceFAZolin(*) 1 GM VIAL 1 GM in NS(*) 0.9% 100 ML ADDVANT BAG 100 ML IV ONE (15:55)
[2018-08-24] MEDS ORDERED: KCL/D5LR 20 MEQ/1000 ML PREMIX 1,000 ML IV PRN (16:35)
[2018-08-24] MEDS ORDERED: NALOXONE HCL 0.4 MG/ML VIAL IVP PRN (16:35)
[2018-08-24] MEDS ORDERED: MORPHINE SULFATE 30 MG PCA IV PRN (16:35)
[2018-08-24] MEDS ORDERED: PROMETHAZINE 25 MG/ML 1 ML AMP IVP PRN (16:35)
[2018-08-24] MEDS ORDERED: MAGNESIUM CITRATE 300 ML BTL PO PRN (16:35)
[2018-08-24] MEDS ORDERED: ACETAMINOPHEN 500 MG TAB PO PRN (16:35)
[2018-08-24] MEDS ORDERED: ONDANSETRON 4 MG/2 ML VIAL IVP PRN (16:35)
[2018-08-24] MEDS ORDERED: FLUSH 10 ML SYR IVP PRN (16:35)
[2018-08-24] MEDS ORDERED: diphenhydrAMINE 25 MG CAP PO PRN (16:35)
[2018-08-24] MEDS ORDERED: ALBUTEROL/IPRATROPIUM 3 ML NEB NEB ONE (16:40)
--- NOTE | 2018-08-24 16:40 | RADIOLOGY IMAGING REPORT ---
FACILITY: [facility] - [place], [place] PATIENT NAME: Sybil Dewitt : 1985 MR: [id number] V: [id number] EXAM DATE: ORDERING PHYSICIAN: HAILE LOW TECHNOLOGIST: Location: [facility] - [place] Patient: Sybil Dewitt : 1985 Visit/Account:[id number] Date of Sevice: 08/24/2018 C-ARM FLUORO 1 HR HISTORY: TIBIA FRACTURE C-arm FINDINGS: Intraoperative films demonstrating intramedullary rhiannon fixation of the tibia. There is good anatomic alignment of the distal third tibial fracture. Cerclage wire noted at the point of fracture. The ad jacent fibular fracture is seen with slight cortical offset and angulation. IMPRESSION: Intraoperative films as described. Fluoroscopic time of 86.7 seconds. DAP [id number] Report Dictated By: Jett Llamas MD at 08/24/2018 4:30 PM Report E-Signed By: Jett Llamas MD at 08/24/2018 4:35 PM WSN:[email or web address]
[2018-08-24] MEDS ORDERED: DIAZEPAM 10 MG TAB PO PRN (18:10)
[2018-08-24] MEDS ORDERED: LABETALOL HCL 100 MG/20ML VIAL ONE (18:30)
[2018-08-24] MEDS: DIAZEPAM 10 MG TAB PO PRN ×2 (19:45→20:37)
[2018-08-24] MEDS: OXcarbazepine 300 MG TAB PO SCH (20:37)
[2018-08-24] MEDS: PANTOPRAZOLE SOD 40 MG TABEC PO SCH (20:37)
[2018-08-24] MEDS: PROPRANOLOL HCL 20 MG TAB PO SCH (20:37)
[2018-08-24] MEDS: QUEtiapine FUM 25 MG TAB PO SCH (20:37)
[2018-08-24] MEDS ORDERED: NS(*) 0.9% 250 ML BAG 250 ML ONE (20:59)
--- NOTE | 2018-08-24 22:30 | OPERATIVE REPORT 1 ---
EVENT DATE: August 24, 2018 SURGEON: Isaac Bacon MD ANESTHESIOLOGIST: Sebastian Desai MD ANESTHESIA: General. PROGRAMMING DIRECTOR: TULIO Saavedra PREOPERATIVE DIAGNOSIS Open left tibia-fibula fracture, Gustilo class I. POSTOPERATIVE DIAGNOSIS Open left tibia-fibula fracture, Gustilo class I. PROCEDURES PERFORMED 1. Irrigation and debridement of open wound at junction of middle and distal thirds at tibial fracture. 2. Intramedullary rodding, left tibia. ESTIMATED BLOOD LOSS 100 INTRAVENOUS FLUIDS 1600 TOURNIQUET TIME 57 minutes SPECIMENS No specimens. COMPLICATIONS No complications. IMPLANTS USED A 300 x 9 mm T2 Brock tibial nail with four locking screws. SUMMARY OF PROCEDURE The patient was brought into the operating room and placed on the OR table in the supine position. After attaining adequate general anesthesia, the left lower extremity was prepped and draped in the usual sterile fashion. We did not use a tourniquet initially. The open portion of the wound was extended proximally and distally, and I carefully spread down to the subcutaneous border of the anterior portion of the tibia where the spike had originally came down and went out through the skin. I excised the hole through which the bone had exited the skin and then also brought each segment of the bone forward and out through the incision, cleaning it with a curette, and then doing pulse lavage. After each one of them had been fully cleaned out, we did determine that there was a longitudinal split with the anterior segment of the distal fragment continuing down, and I was quite concerned that if we tried to ream into this, it would most likely fall apart. Therefore, before proceeding, we did a cerclage wire with 18-gauge stainless steel wire to help hold the anterior and posterior fragments together. Subsequent to this, the bone holding forceps were used to apply traction, and we rotated the fracture into position, reduced it, and then held it with two bone holding forceps which were left in place for the remainder of the rodding. At this point, we used the triangle and gained access along the medial aspect of the patellofemoral joint. The anterior aspect of the tibia was identified, and under fluoroscopic guidance, the guidewire was started. We then placed the beaded wire down to the ankle and measured for a 300 rhiannon. We reamed up to 10.5 and then placed a 9 mm rhiannon. It was directed under x-ray guidance and appeared to maintain anatomic reduction at the tibia. The tourniquet had been inflated before doing the open incision at the knee, and we reamed quite slowly to ensure that there would not be too much heat buildup. Subsequent to this after the rhiannon had been placed and the x-rays confirmed adequate position, we placed the proximal locking screws, and then we placed one distal edgpzp-fj-qvyllhj locking screw and another gpbgveiu-tz-ltptcabmg locking screw. I did not want to place the distal wicimw-[id number]-ttvgxlr locking screw because it was placed fairly close down to the epiphyseal scar, and I felt it would be angled at such a way that it might be difficult to get into proper position. The wound was irrigated at both locations one more time. We had run about 4 L of fluid through the wounds in pulsatile lavage. The tourniquet was deflated. We controlled bleeding where necessary and then closed. As expected, the distal incision was rather difficult to close, but it did come together with Vicryl and marilou, and the more proximal incision was easier to close. She was given a dry, sterile dressing and was transferred to the recovery area in stable condition where she was confirmed to have the capacity to dorsiflex and plantar flex as well as having a palpable dorsalis pedis pulse. DAQUAN
[2018-08-24] MEDS: ceFAZolin(*) 1 GM VIAL 1 GM in NS(*) 0.9% 100 ML ADDVANT BAG 100 ML IVPB SCH (22:45)
[2018-08-25 00:40] VITALS: BP 137/95
[2018-08-25 03:51] VITALS: BP 131/101
[2018-08-25] MEDS: ceFAZolin(*) 1 GM VIAL 1 GM in NS(*) 0.9% 100 ML ADDVANT BAG 100 ML IVPB SCH ×2 (06:14→14:05)
[2018-08-25 06:19] LABS: PLATELET COUNT, AUTOMATED 147 K/uL (150-450)
[2018-08-25 07:06] VITALS: BP 118/93
--- NOTE | 2018-08-25 07:12 | RADIOLOGY IMAGING REPORT ---
FACILITY: [facility] PATIENT NAME: Sybil Dewitt : 1985 MR: [id number] V: [id number] EXAM DATE: ORDERING PHYSICIAN: HAILE LOW TECHNOLOGIST: Location: [facility] [place] Patient: Sybil Dewitt : 1985 Visit/Account:[id number] Date of Sevice: 08/25/2018 Left knee/lower leg: Indication: Postoperative evaluation. Technique: AP and lateral views were obtained. Comparison: 08/24/2018 Findings: An intramedullary rhiannon was inserted into the left tibia across the fracture. There are proxi mal and distal transverse screws. There is also a wire suture around the distal tibial shaft. The sindhu dware and the skeletal structures are in satisfactory alignment. The fractures of the proximal and distal fibula are also were also reduced into satisfactory alignmen t. Skin marilou are present anterior to the knee and distal fibular shaft. IMPRESSION: Satisfactory postop appearance. Report Dictated By: Alistair Moya MD at 08/25/2018 7:04 AM Report E-Signed By: Alistair Moya MD at 08/25/2018 7:08 AM WSN:[id number]
[2018-08-25] MEDS ORDERED: MAGNESIUM SUL* 2 GM/50 ML IVPB 50 ML IVPB ONE (08:05)
--- NOTE | 2018-08-25 08:17 | Hospitalist Progress Note ---
Subjective Progress Notes Subjective She reports surgical site pain. She states she is "a little shaky". She believes she would want to detox and discuss her alcohol use with substance abuse counselors. Physical Exam Vital Signs Date Time Temp Pulse Resp B/P (MAP) Pulse Ox O2 Delivery O2 Flow Rate FiO2 08/25/18 07:43 89 08/25/18 07:06 98.7 118/93 (101) 94 Nasal Cannula 0.5 08/25/18 03:51 20 Intake and Output 08/25/18 06:59 Intake Total 7010 ml Output Total 3850 ml Balance 3160 ml Intake Oral 900 ml IV Total 4210 ml Other 1900 ml Output Urine Total 3650 ml Estimated Blood Loss 200 ml # Bowel Movements 1 General Appearance: Alert, Awake, Other (mildly tremulous) Cardiovascular: Regular Rate and Rhythm Respiratory: Clear to Auscultation GI: Soft and Non-Tender Result Diagram: 08/25/18 0530 08/25/18 0530 Assessment and Plan Problems: (1) Alcohol abuse Status: Acute Assessment & Plan: She continues to have some mild withdrawal symptoms. Will co ntinue on CIWA protocol/use benzodiazepines as needed, supplement with B vitamins, watch closely. This certainly may complicate her maya-operative course. Will have the substance abuse counselors see her soon. (2) Celiac disease Status: Chronic Assessment & Plan: She is on a gluten free diet. (3) GERD (gastroesophageal reflux disease) Status: Chronic Assessment & Plan: Will continue with PPI therapy. (4) ANXIETY DISORDER, UNSPECIFIED Status: Chronic Assessment & Plan: She has been managed with oxcarbazepine, Seroquel, and clonazepam. We have been holding the clonazepam while she is detoxing from alcohol with the diazepam for coverage. (5) HTN (hypertension) Status: Chronic Assessment & Plan: She has been managed with propranolol. We have restarted. Monitor BPs. (6) Tibia/fibula fracture Status: Acute Assessment & Plan: As per Dr. Bacon. Exam Sepsis Risk: No Definite Risk Problem Qualifiers (1) Tibia/fibula fracture: Laterality: left ROZINA LOPEZ MD Aug 25, 2018 08:17
[2018-08-25] MEDS: PROPRANOLOL HCL 20 MG TAB PO SCH ×2 (09:00→09:36)
[2018-08-25] MEDS ORDERED: FOLIC ACID 1 MG TAB PO SCH (09:00)
[2018-08-25] MEDS ORDERED: ENOXAPARIN 40 MG/0.4ML SYR SC SCH (09:00)
[2018-08-25] MEDS ORDERED: THIAMINE HCL 200 MG/2 ML INJ IVP SCH (09:00)
[2018-08-25] MEDS ORDERED: VITA-175 PO (09:01)
[2018-08-25] MEDS: OXcarbazepine 300 MG TAB PO SCH (09:36)
[2018-08-25] MEDS: QUEtiapine FUM 25 MG TAB PO SCH (09:36)
[2018-08-25] MEDS: PANTOPRAZOLE SOD 40 MG TABEC PO SCH (09:37)
[2018-08-25 09:48] VITALS: BP 116/82
[2018-08-25 11:25] VITALS: BP 98/56
[2018-08-25] MEDS ORDERED: ASPIRIN 325 MG TAB PO SCH (12:00)
[2018-08-25] MEDS ORDERED: oxycodone PO ×2 (12:32→12:45)
[2018-08-25] MEDS ORDERED: CEPH500T7 PO ×2 (12:32→12:46)
[2018-08-25] MEDS ORDERED: ASPI-757 PO (13:52)
[2018-08-25 14:46] VITALS: BP 105/79
[2018-08-28] MEDS ORDERED: THIAMINE HCL 100 MG TAB PO SCH (09:00)
== END 2018-08-25 15:40 | disposition home or self-care (01) | DRG 493 ==
LOC: ER 07:12 → MED 10:38
PROVIDERS: ADMIT Orthopaedic Surgery Hand Surgery; ATTEND Orthopaedic Surgery Hand Surgery
PROC: 0QSH06Z Reposition Left Tibia with Intramedullary Internal Fixation Device, Open Approach (ICD-10-PCS; principal; 2018-08-24 13:30)
DX: S82.232B Displaced oblique fracture of shaft of left tibia, initial encounter for open fracture type I or II (principal); F10.230 Alcohol dependence with withdrawal, uncomplicated; S82.832B Other fracture of upper and lower end of left fibula, initial encounter for open fracture type I or II; K90.0 Celiac disease; K21.9 Gastro-esophageal reflux disease without esophagitis; F41.9 Anxiety disorder, unspecified; I10 Essential (primary) hypertension; F17.210 Nicotine dependence, cigarettes, uncomplicated; F12.90 Cannabis use, unspecified, uncomplicated; F11.90 Opioid use, unspecified, uncomplicated; Y90.8 Blood alcohol level of 240 mg/100 ml or more; Z23 Encounter for immunization; W10.9XXA Fall (on) (from) unspecified stairs and steps, initial encounter; Y92.009 Unspecified place in unspecified non-institutional (private) residence as the place of occurrence of the external cause; Y99.8 Other external cause status
CPT/HCPCS: 36415; 70450; 71046; 72125; 72170; 75635; 76000; 80305; 80320; 81001; 82040; 82247; 82310; 82374; 82435; 82550; 82565; 82947; 83735; 84075; 84132; 84155; 84295; 84450; 84460; 84520; 84703; 85014; 85018; 85025; 85610; 85730; 90471; 90715; 93005; 94640; 94667; 96361; 96365; 96375; 96376; 97161; 99285; C1713; J0330; J0690; J1650; J1885; J2060; J2405; J3010; J3411; J3475; J3490; J7030; J7050; Q9967

== ENCOUNTER → 2018-08-24 | Outpatient (CLI) | payer BC ==
[~2018-08-24] MED LIST: ASPI-757 PO; CEPH500T7 PO; CLON-331 PO; FLUO-201 PO; GAB100 PO; HYDR-385 PO; HYDR-654 PO; HYDR10TA3 PO; NO ROUTINE MEDS; OXCA600T39 PO; OXYC-373 PO; PROP20TA56 PO; QUET25TA PO; VITA-175 PO; oxycodone PO
[2018-08-24 18:46] VITALS: BMI 28.5
== END ==
LOC: AMB 06:21
PROVIDERS: ATTEND Nurse Practitioner
DX: S82.202B Unspecified fracture of shaft of left tibia, initial encounter for open fracture type I or II (principal)
CPT/HCPCS: A0425; A0427

== ENCOUNTER 2018-09-07 14:03 | Emergency (ER) | payer BC ==
[2018-08-24 18:46] VITALS: Wt 72.6 kg
[~2018-09-07 14:03] MED LIST changes: -OXYC-373 PO
[2018-09-07] MEDS ORDERED: NS(*) 0.9% 1000 ML BAG 1,000 ML IV ONE (14:20)
--- NOTE | 2018-09-07 14:34 | ER Report ---
History and Physical Time Seen By MD: 14:25 Hx. of Stated Complaint: PT REPORTS UNABLE TO GET UP TO USE RESTROOM D/T WEAKNESS & PAIN IN LEFT LEG (RIVAS MIR MD) HPI/ROS CHIEF COMPLAINT: Fall, ambulatory dysfunction HISTORY OF PRESENT ILLNESS: Patient is a 32-year-old female who was brought in by ambulance after a fall and unable to ambulate at home. Patient was seen here on August 24 after suffering an open tib-fib fracture to the left lower extremity after falling down some steps. Patient was intoxicated at the time. Patient was admitted here and had surgical fixation with Dr. Isaac Bacon; trisha ent is approximate postop day 14 from that surgery. She states that she is continue to drink because she has ran out of her pain medications. She is having difficulty ambulating secondary to pain of the left leg. She also has swelling to the left lower extremity. Patient denies any new injuries. Paula from initial surgery are still intact. Patient admits to having approximately 3 shots of hard liquor today prior to arrival to the emergency department. Lives with but he "is not helpful with assisting her get around" REVIEW OF SYSTEMS: Constitutional: No fever, no chills. Intoxicated Eyes: No discharge. ENT: No sore throat. Cardiovascular: No chest pain, no palpitations. Respiratory: No cough, no shortness of breath. Gastrointestinal: No abdominal pain, no vomiting. Genitourinary: No hematuria. Musculoskeletal: No back pain. Skin: Swelling and erythema to left lower extremity Neurological: No headache. (RIVAS MIR MD) Allergies: Coded Allergies: valacyclovir (Verified Allergy, Unknown, HIVES, 09/07/18) Home Meds Active Scripts Oxycodone Hcl/Acetaminophen (OXYCODONE-ACETAMINOPHEN 5-325) 1 Each Tablet, 1 E ACH PO Q4-6H PRN for PAIN, #20 TAB Prov:BELLA DUBON DO 09/07/18 Vitamin B Complex (B COMPLEX) 1 Each Tablet, 1 EACH PO DAILY for 30 Days, #30 TAB 1 Refill Prov:ROZINA LOPEZ MD 08/25/18 Reported Medications Quetiapine Fumarate (QUETIAPINE FUMARATE) 25 Mg Tablet, 1 TAB PO BID 08/24/18 Propranolol Hcl (PROPRANOLOL HCL) 20 Mg Tablet, 1 TAB PO DAILY 08/24/18 Oxcarbazepine (OXCARBAZEPINE) 600 Mg Tablet, 1 TAB PO BID 08/24/18 Clonazepam (CLONAZEPAM) 0.5 Mg Tablet, 0.5 MG PO, #6 TAB as needed for panic attacks. use sparingly 10/26/14 Discontinued Reported Medications Aspirin (ASPIRIN) 325 Mg Tablet, 325 MG PO QDAY for 7 Days, TAB 08/25/18 Cephalexin 500 Mg Tab (KEFLEX 500 MG TAB) 500 Mg Tablet, 500 MG PO Q6H, #12 TAB 08/25/18 [oxycodone] No Conflict Check, 5-10 MG PO Q4-6H PRN for PAIN 08/25/18 Cephalexin 500 Mg Tab (KEFLEX 500 MG TAB) 500 Mg Tablet, 500 MG PO Q6H, #28 TAB 08/25/18 [oxycodone] No Conflict Check, 5-10 MG PO Q4-6H PRN for PAIN 08/25/18 Past Medical/Surgical History Past medical history for alcohol abuse, celiac disease, gastroesophageal reflux disease, anxiety, hypertension, status post open tib-fib fracture from August 24 that is post ORIF (RIVAS MIR MD) Hx Smoking: Yes Smoking Status: Current: Some Days Smoker Exposure to Second Hand Smoke?: No Hx Substance Use Disorder: Yes (couple days ago) Hx Alcohol Use: Yes (1-2 PINTS/DAY) (RIVAS MIR MD) Constitutional Vital Sign - Last 24 Hours 09/07/18 09/07/18 09/07/18 09/07/18 14:05 14:15 14:30 14:30 Temp 98.5 Pulse 112 108 Resp 16 B/P (MAP) 129/97 138/106 (117) Pulse Ox 91 91 O2 Delivery Room Air O2 Flow Rate 2.0 09/07/18 09/07/18 15:00 15:30 B/P (MAP) 128/88 (101) 117/85 (96) (BELLA DUBON DO) Physical Exam General Appearance: The patient is alert, has no immediate need for airway protection and no signs of toxicity. Patient does seem to be clinically intoxicated Eyes: Pupils equal patient does have horizontal nystagmus on exam conjunctiva are slightly injected ENT, Mouth: Mucous membranes are moist. Respiratory: There are no retractions, lungs are clear to auscultation. Alcohol on breath Cardiovascular: Regular rate and rhythm. Gastrointestinal: Abdomen is soft and non tender, no masses, bowel sounds normal. Neurological: Clinical signs of intoxication Skin: Examination of left lower extremity shows extensive ecchymosis and bruising to the foot on the foot is also swollen. Patient does have a palpable dorsalis pedis pulse that is strong and regular. There is some erythema to the foot and the incisions which appear intact she no evidence of fluctuance or de hiscence. There is some mild maya-incisional erythema. Musculoskeletal: Neck is supple non tender. Remainder of the extremities appear normal, on tender and nonswollen and have full range of motion. (RIVAS MIR MD) Medical Decision Making Data Points Result Diagram: 09/07/18 1445 09/07/18 1445 Laboratory Hematology Test 09/07/18 14:45 09/07/18 16:22 Red Blood Count 4.07 M/uL (4.17-5.56) Mean Corpuscular Volume 100.8 fL (80.0-96.0) Mean Corpuscular Hemoglobin 33.6 pg (26.0-33.0) Mean Corpuscular Hemoglobin Concent 33.4 g/dL (32.0-36.0) Red Cell Distribution Width 15.5 % (11.5-14.5) Mean Platelet Volume 6.3 fL (7.2-11.1) Neutrophils (%) (Auto) 67.5 % (39.4-72.5) Lymphocytes (%) (Auto) 24.3 % (17.6-49.6) Monocytes (%) (Auto) 6.9 % (4.1-12.4) Eosinophils (%) (Auto) 0.8 % (0.4-6.7) Basophils (%) (Auto) 0.5 % (0.3-1.4) Nucleated RBC Relative Count (auto) 0.0 /100WBC Neutrophils # (Auto) 3.8 K/uL (2.0-7.4) Lymphocytes # (Auto) 1.4 K/uL (1.3-3.6) Monocytes # (Auto) 0.4 K/uL (0.3-1.0) Eosinophils # (Auto) 0.0 K/uL (0.0-0.5) Basophils # (Auto) 0.0 K/uL (0.0-0.1) Nucleated RBC Absolute Count (auto) 0.00 K/uL Peripheral Blood Smear Yes Y/N Sodium Level 146 mmol/L (137-145) Potassium Level 4.2 mmol/L (3.5-5.0) Chloride Level 109 mmol/L (98-107) Carbon Dioxide Level 21 mmol/L (22-31) Blood Urea Nitrogen 6 mg/dl (7-18) Creatinine 0.40 mg/dl (0.52-1.04) Glomerular Filtration Rate Calc > 60.0 Random Glucose 82 mg/dl (75-110) Calcium Level 9.4 mg/dl (8.4-10.2) Total Bilirubin 0.6 mg/dl (0.2-1.3) Aspartate Amino Transf (AST/SGOT) 177 U/L (0-35) Alanine Aminotransferase (ALT/SGPT) 231 U/L (0-56) Alkaline Phosphatase 91 U/L (0-126) Total Creatine Kinase 92 U/L (30-135) C-Reactive Protein < 0.5 mg/dl (<1.0) Total Protein 7.8 g/dl (6.3-8.2) Albumin 4.5 g/dl (3.5-5.0) Human Chorionic Gonadotropin, Qual Negative (NEGATIVE) Serum Alcohol 397 mg/dl Lactate 4.0 mmol/L (0.7-2.1) Chemistry Test 09/07/18 14:45 09/07/18 16:22 White Blood Count 5.6 k/uL (4.5-11.0) Red Blood Count 4.07 M/uL (4.17-5.56) Hemoglobin 13.7 g/dL (12.0-16.0) Hematocrit 41.0 % (34.0-47.0) Mean Corpuscular Volume 100.8 fL (80.0-96.0) Mean Corpuscular Hemoglobin 33.6 pg (26.0-33.0) Mean Corpuscular Hemoglobin Concent 33.4 g/dL (32.0-36.0) Red Cell Distribution Width 15.5 % (11.5-14.5) Platelet Count 508 K/uL (150-450) Mean Platelet Volume 6.3 fL (7.2-11.1) Neutrophils (%) (Auto) 67.5 % (39.4-72.5) Lymphocytes (%) (Auto) 24.3 % (17.6-49.6) Monocytes (%) (Auto) 6.9 % (4.1-12.4) Eosinophils (%) (Auto) 0.8 % (0.4-6.7) Basophils (%) (Auto) 0.5 % (0.3-1.4) Nucleated RBC Relative Count (auto) 0.0 /100WBC Neutrophils # (Auto) 3.8 K/uL (2.0-7.4) Lymphocytes # (Auto) 1.4 K/uL (1.3-3.6) Monocytes # (Auto) 0.4 K/uL (0.3-1.0) Eosinophils # (Auto) 0.0 K/uL (0.0-0.5) Basophils # (Auto) 0.0 K/uL (0.0-0.1) Nucleated RBC Absolute Count (auto) 0.00 K/uL Peripheral Blood Smear Yes Y/N Glomerular Filtration Rate Calc > 60.0 Calcium Level 9.4 mg/dl (8.4-10.2) Total Bilirubin 0.6 mg/dl (0.2-1.3) Aspartate Amino Transf (AST/SGOT) 177 U/L (0-35) Alanine Aminotransferase (ALT/SGPT) 231 U/L (0-56) Alkaline Phosphatase 91 U/L (0-126) Total Creatine Kinase 92 U/L (30-135) C-Reactive Protein < 0.5 mg/dl (<1.0) Total Protein 7.8 g/dl (6.3-8.2) Albumin 4.5 g/dl (3.5-5.0) Human Chorionic Gonadotropin, Qual Negative (NEGATIVE) Serum Alcohol 397 mg/dl Lactate 4.0 mmol/L (0.7-2.1) Toxicology Test 09/07/18 14:45 Serum Alcohol 397 mg/dl (BELLA DUBON DO) ED Course/Re-evaluation Clinical Indication for ER IV: IV Access ED Course 09/07/2018 2:33:32 pm patient 2 weeks out from internal fixation of tib-fib fracture to left lower extremity. It does not appear that the patient is caring for herself well. Her bandages were dirty she has not yet followed up with orthopedics and she appears clinically intoxicated I which was her presentation 2 weeks ago, and the cause of her fall most likely. I'm also concerned given her likely alcohol abuse that she is again high risk for falling at home. Plan at this time will be to obtain blood work we will reimage the lower extremity perform a venous Doppler ultrasound of the left lower extremity. (RIVAS MIR MD) Clinical Indication for ER IV: IV Access ED Course 09/07/2018 4:14:56 pm Pt signed out to me pending blood work and US of lower extremity. Pts blood work shows elevated lactic acid however pts CRP and wbc is normal. Pt is getting fluids. Bp stable. Pt states she feels okay to go home. is not here. Pt states she is attempting to call . We will redraw lactic acid. Pt states she missed her 10 day appt with [facility] due to she could not get a ride. Pt does have an appt for the and states she can get there. will speak with orthopedics. 09/07/2018 4:52:[address] Levine, orthopedics. He states that he feels with no change in her xray and no blood clot pt can go home. I did let him know of the lactic acid however with no fever, nl wbc and crp he feels that is more likely related to her alcohol. Pt is not looking for rehab from alcohol and when I told her her alcohol level she said "i dont believe it, I only had a drink or two due to the pain in my ankle and no more percocet". I offered to recheck her level but she said "not necessary". Pt is alert and not slurring her words. Pt would like to go home but is having trouble getting in touch with her . Pt feels her is not picking up due to not recognizing the number. Pt is going to attempt to call another family member. 09/07/2018 5:04:51 pm Pts has arrived. states that he is not letting his walk on her foot. I did let him know that orthopedics states she can use a walker. They do have a walker but he is afraid she may fall. Decision to Disposition Date: Sep 07, 2018 Decision to Disposition Time: 17:06 (BELLA DUBON DO) Depart Departure Latest Vital Signs Vital Signs Date Time Temp Pulse Resp B/P (MAP) Pulse Ox O2 Delivery O2 Flow Rate FiO2 09/07/18 15:30 117/85 (96) 09/07/18 14:30 2.0 09/07/18 14:15 108 91 09/07/18 14:05 98.5 16 Room Air (LINGBELLA Jeremy MALIN) Impression: Primary Impression: Tibia/fibula fracture Additional Impression: Alcohol abuse Condition: Condition Unchanged Disposition: HOME OR SELF-CARE Referrals: [facility] PT 5 Days New Scripts Oxycodone Hcl/Acetaminophen (OXYCODONE-ACETAMINOPHEN 5-325) 1 Each Tablet 1 EACH PO Q4-6H PRN for PAIN, #20 TAB Prov: LINGBELLA Jeremy MALIN 09/07/18 Patient Instructions: Leg Fracture (ED) Additional Instructions: Elevate and rest your ankle. Keep your appointment with orthopedics this coming week. Ice for pain. Percocet one every 6 hours as needed for severe pain. You can not drink alcohol while taking percocet. Motrin (advil, ibuprofen) 600mg every 6 hours as needed for moderate pain. Problem Qualifiers Primary Impression: Tibia/fibula fracture Encounter type: subsequent encounter Fracture type: open Open fracture type: open type I or II Laterality: left Fracture healing: with routine healing Qualified Codes: S82.202E - Unspecified fracture of shaft of left tibia, subsequent encounter for open fracture type I or II with routine healing; S82.402E - Unspecified fracture of shaft of left fibula, subsequent encounter for open fracture type I or II with routine healing RIVAS MIR MD Sep 07, 2018 14:34 BELLA DUBON DO Sep 07, 2018 16:15
[2018-09-07 14:58] LABS: PLATELET COUNT, AUTOMATED 508 K/uL (150-450)
[2018-09-07] MEDS ORDERED: cefTRIAXone(*) 1 GM VIAL 1 GM in NS(*) 0.9% 100 ML ADDVANT BAG 100 ML IVPB ONE (15:15)
--- NOTE | 2018-09-07 15:32 | RADIOLOGY IMAGING REPORT ---
FAC[facility] PATIENT NAME: Sybil Dewitt : 1985 MR: [id number] V: [id number] EXAM DATE: ORDERING PHYSICIAN: RIVAS MIR TECHNOLOGIST: Location: [facility] [place] Patient: Sybil Dewitt : 1985 Visit/Account:[id number] Date of Sevice: 09/07/2018 TIBIA FIBULA LEFT Indication: fall Comparison: Left tibia/fibular radiograph 08/25/2018. Findings: There are postoperative changes with an intramedullary nail in the left tibia. Alignment i s normal. There is no oblique fracture the head of the left fibula, and a transverse fracture distal third left fibula. Skin marilou are unchanged. IMPRESSION: 1. Postoperative changes of open reduction internal fixation left tibia fracture, with a intramedull maddi nail. Hardware is unchanged from comparison 08/25/2018. 2. Nondisplaced fracture at the head of the left fibula, and nondisplaced fracture at the mid to dis more portion of the left fibula, stable. Report Dictated By: Abbe Pleitez at 09/07/2018 3:27 PM Report E-Signed By: Abbe Pleitez at 09/07/2018 3:29 PM WSN:[id number]
--- NOTE | 2018-09-07 16:02 | RADIOLOGY IMAGING REPORT ---
FACILITY: [facility] [place] PATIENT NAME: Sybil Dewitt : 1985 MR: [id number] V: [id number] EXAM DATE: ORDERING PHYSICIAN: RIVAS MIR TECHNOLOGIST: Location: [facility] Patient: Sybil Dewitt : 1985 Visit/Account:[id number] Date of Sevice: 09/07/2018 Venous Doppler ultrasound left lower extremity Indication: Left leg swelling.. Comparison: None Available Findings: Duplex Doppler and color flow imaging was performed. The common femoral, femoral, and popl iteal veins are all patent and compressible with normal Doppler wave forms. There are normal respons es to augmentation. The posterior tibial and peroneal veins are patent in the calf. The proximal greater saphenous vein is also normal. Subcutaneous tissues are unremarkable. IMPRESSION: 1. No evidence of deep venous thrombosis of the left lower extremity. Report Dictated By: Isaac Negron at 09/07/2018 3:58 PM Report E-Signed By: Isaac Negron at 09/07/2018 3:59 PM WSN:[id number]
[2018-09-07] MEDS ORDERED: OXYC-373 PO (16:57)
[2018-09-07 17:00] VITALS: BP 113/73
== END 2018-09-07 17:11 | disposition home or self-care (01) ==
LOC: ER 14:15
DX: S82.202E Unspecified fracture of shaft of left tibia, subsequent encounter for open fracture type I or II with routine healing (principal); S82.402E Unspecified fracture of shaft of left fibula, subsequent encounter for open fracture type I or II with routine healing; Z98.890 Other specified postprocedural states; F10.10 Alcohol abuse, uncomplicated; Y90.8 Blood alcohol level of 240 mg/100 ml or more
CPT/HCPCS: 36415; 73590; 80320; 82550; 83605; 84703; 85025; 86140; 93971; 96361; 96365; 99284; J0696; J7030; J7050; 82040; 82247; 82310; 82374; 82435; 82565; 82947; 84075; 84132; 84155; 84295; 84450; 84460; 84520

== ENCOUNTER → 2018-09-07 | Outpatient (CLI) | payer BC ==
[2018-08-24 18:46] VITALS: BMI 28.5
[~2018-09-07] MED LIST changes: +ASPI-757 PO; +CEPH500T7 PO; +HYDR-385 PO; +OXCA600T39 PO; +OXYC-373 PO; +PROP20TA56 PO; +QUET25TA PO; +VITA-175 PO; +oxycodone PO
== END ==
LOC: AMB 13:34
PROVIDERS: ATTEND Nurse Practitioner
DX: M79.605 Pain in left leg (principal); R41.82 Altered mental status, unspecified; Z98.890 Other specified postprocedural states
CPT/HCPCS: A0425; A0427